=== PATIENT | male | born 1970 | race Caucasian/White ===

== ENCOUNTER 2016-08-31 13:48 | Emergency (ER) | payer BC, OTHER ==
[~2016-08-31] VITALS: Ht 171.5 cm; Wt 99.3 kg
[~2016-08-31 13:48] MED LIST: ASPCH81; LPT/40 PO; OMEG10007 PO; SULF800T23 PO; [UNRECOGNIZED DRUG - REMARK]; [UNRECOGNIZED DRUG - REMARK]
[2016-08-31 13:53] VITALS: TEMP 37; Ht 171.5 cm; Wt 99.3 kg
[2016-08-31] MEDS ORDERED: ASPI81TA28 PO (15:30)
[2016-08-31] MEDS ORDERED: PRAV80TA2 PO (15:30)
[2016-08-31] MEDS ORDERED: NIAC500T11 PO (15:30)
--- NOTE | 2016-08-31 15:38 | EMERGENCY ROOM VISIT NOTE ---
History First contact with patient: 15:10 Chief Complaint: UNABLE TO VOID Stated Complaint: PAIN CANT URINATE Nursing Triage Summary: Patienet reports lower abd pain and right flank pain x one week. Also c/o intermittent nausea Denies any history of kidney stones History of Present Illness The patient is a 45 year old male who presents to the Emergency Room with complaints of right flank pain and abdominal pain for the past one week. The patient reports that he has had a dull pain in his abdomen and flank which occasionally becomes sharp. He also reports he has had hematuria, dysuria, urinary urgency and a feeling of incomplete emptying. He has had nausea, but no vomiting. The patient reports that his urine has been very dark in color. Prior to arrival, the patient had very severe pain, but he reports that on arrival the pain has significantly improved and he rates his current discomfort a 3/10. He states his bowel movements have been normal. He does not have any history of abdominal surgery, kidney stones or kidney infections. The patient denies any chest pain, shortness of breath, hematochezia, melena, fevers or chills. Review of Systems A complete 10-point Review of Systems was discussed with the patient, with pertinent positives and negatives listed in the History of Present Illness. All remaining Review of Systems questions can be considered negative unless otherwise specified. Social History Smoking Status: Current Every Day Smoker Alcohol Use: none Current/Historical Medications Scheduled Aspirin (Aspirin Ec), 81 MG PO QPM Fish Oil (Marianna-3), 2 CAP PO QPM Niacin (Niacin), 500 MG PO DAILY Ondasetron Odt (Zofran Odt), 4 MG SL Q6H Pravastatin Sodium (Pravastatin Sodium), 1 TAB PO QPM Tamsulosin Hcl (Flomax), 0.4 MG PO DAILY Scheduled PRN Oxycodone/Acetaminophen 5MG/325MG (Percocet 5MG/325MG), 1-2 TABS PO Q6H PRN for Pain Allergies Coded Allergies: No Known Allergies (Unverified Allergy, Mild, 04/22/08) Uncoded Allergies: NKD (Allergy, Unknown, 11/26/04) Physical Exam Vital Signs Date Time Temp Pulse Resp B/P Pulse Ox O2 Delivery O2 Flow Rate FiO2 08/31/16 17:00 72 14 138/80 98 08/31/16 16:13 69 18 126/83 98 Room Air 3/9/17 13:53 37.0 82 20 142/92 95 Room Air Physical Exam VITALS: Vitals are noted on the nurse's note and reviewed by myself. Vital signs stable. GENERAL: This is a 45-year-old male, in no acute distress, nondiaphoretic, well- developed well-nourished. SKIN: Capillary reflex less than 2 seconds. HEENT: Normocephalic. PERRLA. EOMI. Nares patent. Mucous membranes moist. Neck is supple without nuchal rigidity. HEART: Regular rate and rhythm without murmurs gallops or rubs. LUNGS: Clear to auscultation bilaterally without wheezes, rales or rhonchi. ABDOMEN: Positive bowel sounds x 4. Umbilical hernia noted. The abdomen is soft and nondistended. No significant tenderness to palpation. MUSCULOSKELETAL: No CP tenderness. NEURO: Patient was alert and oriented to person place and time. Medical Decision & Procedures ER Provider Diagnostic Interpretation: ABDOMEN AND PELVIS CT WITHOUT CONTRAST FINDINGS: Mild dependent basilar atelectasis. Liver spleen and pancreas appear unremarkable. No evidence for gastric or gallbladder distention. Left kidney is negative for calcification or hydronephrosis. Moderate right renal hydronephrosis and hydroureter. Mild ureteral distention to a 3 mm obstructing calculus distal right ureter. The several centimeters proximal to the right ureterovesical junction. Bowel pattern overall is nonobstructive. Several colonic diverticuli with no evidence for diverticulitis. Normal appendix. IMPRESSION: 1 obstructing distal right ureteral calculus measuring 3 mm. 2. Mild right hydroureteronephrosis. Laboratory Results 08/31/16 15:35 Red Blood Count 5.18, Mean Corpuscular Volume 86.5, Mean Corpuscular Hemoglobin 30.7, Mean Corpuscular Hemoglobin Concent 35.5, Mean Platelet Volume 10.8, Neutrophils (%) (Auto) 81.4, Lymphocytes (%) (Auto) 10.9, Monocytes (%) (Auto) 7.1, Eosinophils (%) (Auto) 0.2, Basophils (%) (Auto) 0.1, Neutrophils # (Auto) 11.98, Lymphocytes # (Auto) 1.61, Monocytes # (Auto) 1.05, Eosinophils # (Auto) 0.03, Basophils # (Auto) 0.02 08/31/16 15:35 Test 08/31/16 15:30 08/31/16 15:35 Urine Color ORANGE Urine Appearance TURBID (CLEAR) Urine pH 5.0 (4.5-7.5) Urine Specific [place] 1.016 (1.000-1.030) Urine Protein 2+ (NEG) Urine Glucose (UA) NEG (NEG) Urine Ketones NEG (NEG) Urine Occult Blood 3+ (NEG) Urine Nitrite NEG (NEG) Urine Bilirubin NEG (NEG) Urine Urobilinogen NEG (NEG) Urine Leukocyte Esterase SMALL (NEG) Urine WBC (Auto) 10-30 /hpf (0-5) Urine RBC (Auto) >30 /hpf (0-4) Urine Hyaline Casts (Auto) 5-10 /lpf (0-5) Urine Epithelial Cells (Auto) 20-30 /lpf (0-5) Urine Bacteria (Auto) NEG (NEG) White Blood Count 14.73 K/uL (4.8-10.8) Red Blood Count 5.18 M/uL (4.7-6.1) Hemoglobin 15.9 g/dL (14.0-18.0) Hematocrit 44.8 % (42-52) Mean Corpuscular Volume 86.5 fL (80-100) Mean Corpuscular Hemoglobin 30.7 pg (25-34) Mean Corpuscular Hemoglobin Concent 35.5 g/dl (32-36) Platelet Count 229 K/uL (130-400) Mean Platelet Volume 10.8 fL (7.4-10.4) Neutrophils (%) (Auto) 81.4 % Lymphocytes (%) (Auto) 10.9 % Monocytes (%) (Auto) 7.1 % Eosinophils (%) (Auto) 0.2 % Basophils (%) (Auto) 0.1 % Neutrophils # (Auto) 11.98 K/uL (1.4-6.5) Lymphocytes # (Auto) 1.61 K/uL (1.2-3.4) Monocytes # (Auto) 1.05 K/uL (0.11-0.59) Eosinophils # (Auto) 0.03 K/uL (0-0.5) Basophils # (Auto) 0.02 K/uL (0-0.2) RDW Standard Deviation 43.1 fL (36.4-46.3) RDW Coefficient of Variation 13.4 % (11.5-14.5) Immature Granulocyte % (Auto) 0.3 % Immature Granulocyte # (Auto) 0.04 K/uL (0.00-0.02) Anion Gap 6.0 mmol/L (3-11) Est Creatinine Clear Calc Drug Dose 103.5 ml/min Estimated GFR () 103.4 Estimated GFR (Non- 89.2 BUN/Creatinine Ratio 14.0 (10-20) Calcium Level 8.9 mg/dl (8.5-10.1) Total Bilirubin 0.5 mg/dl (0.2-1) Aspartate Amino Transf (AST/SGOT) 19 U/L (15-37) Alanine Aminotransferase (ALT/SGPT) 36 U/L (12-78) Alkaline Phosphatase 91 U/L (45-117) Total Protein 7.7 gm/dl (6.4-8.2) Albumin 4.0 gm/dl (3.4-5.0) Globulin 3.7 gm/dl (2.5-4.0) Albumin/Globulin Ratio 1.1 (0.9-2) Lipase 99 U/L (73-393) Medical Decision Differential diagnosis includes renal calculus, pyelonephritis, colitis, gastroenteritis, cholecystitis, pancreatitis, hepatitis, small bowel obstruction , malignancy, among others. The patient was evaluated as above. Labs were drawn and IV access was obtained. Imaging studies were performed and read by radiology as above. The patient's pain had subsided greatly at the time of evaluation and he declined analgesics. The patient was reassessed multiple times during their stay in the emergency department and remained in stable condition. The patient is a 45-year-old male who presents today complaining of right flank pain. Labs revealed leukocytosis consistent with stress. No concerning anemia or left leg abnormalities. Kidney and liver functions were within normal limits. Urinalysis was not suggestive of infection. Blood was present in the urine. CT scan of the abdomen and pelvis was performed and did show a 3 mm stone in the distal right ureter. All findings were discussed with the patient. He will be discharged home with pain medication, Zofran and Flomax. He was given information for urology follow-up. He was given a urine strainer. The patient was encouraged to return if he has worsening of his current condition or any new/concerning symptoms. Based on the patient's presentation, lab results, and imaging studies, I feel the patient is stable for outpatient treatment. Discharge instructions were reviewed with the patient. The patient verbalized understanding of my assessment and treatment plan and was discharged home in good condition. [place] Drug Monitoring Program Search Results: patient reviewed within database, no issues identified Impression Primary Impression: Calculus of distal left ureter Departure Information Dispostion Home / Self-Care Condition GOOD Prescriptions Ondasetron Odt (ZOFRAN ODT) 4 Mg Tab 4 MG SL Q6H for Nausea, #15 TAB Prov: Marli Hinojosa PA-C 08/31/16 Oxycodone/Acetaminophen 5MG/325MG (PERCOCET 5MG/325MG) Tab 1-2 TABS PO Q6H Y for Pain, #20 TAB For Initial Treatment Prov: Marli Hinojosa PA-C 08/31/16 Tamsulosin Hcl (FLOMAX) 0.4 Mg Cap 0.4 MG PO DAILY for 14 Days, #14 CAP Prov: Marli Hinojosa PA-C 08/31/16 Referrals Villa Gamez M.D. (PCP) Briseida Tidwell MD Patient Instructions My [facility] Additional Instructions You have been treated in the Emergency Department today for a Kidney Stone ( Nephrolithiasis). You have been prescribed Percocet to be used for pain control. This is a narcotic medication. You cannot drive or consume alcohol while on this medicine. This medicine should only be used for pain that cannot be controlled with [id number] pain medicines. You have been prescribed Zofran to be used for any nausea or vomiting. Take as prescribed. You have been prescribed Flomax 0.4 mg to be taken ONCE daily. This medicine has been prescribed as it can help relax the smooth muscles of the urinary tract increasing transit time of the kidney stone. For pain control, you can use the following [id number] medicines (if >12 yo): - Regular strength (325mg/tab) Tylenol (acetaminophen) 2 tabs every 4-6 hours as needed. Do not exceed 12 tablets in a 24 hour period. Avoid taking more than 4 grams (4000 mg) of Tylenol per day. This includes any other sources of acetaminophen you may take on a regular basis. - Regular strength (200 mg/tab) Advil (ibuprofen) 1-2 tabs every 4-6 hours as needed. Do not exceed a dose of 3200 mg per day. You have been provided a strainer and specimen collection cup. You should strain your urine to collect any passed stones. Your stones can be placed into the specimen cup and taken to your Urologist for further evaluation. You have been provided the contact information for the on-call Urologist. You should contact the Urologist's office tomorrow to establish a follow-up appointment from today's Emergency Department visit. Return to the Emergency Department if your symptoms persist despite the treatment plan outlined above or if you develop the following symptoms: intractable pain, fever, chills, or large amounts of blood in your urine.
[2016-08-31 15:46] LABS: BASO % 0.1 %; BASO ABS # 0.02 K/uL (0-0.2); COMPLETE YES; EOS % 0.2 %; HEMATOCRIT 44.8 % (42-52); IG% 0.3 %; LYMPH % 10.9 %; LYMPH ABS # 1.61 K/uL (1.2-3.4); MEAN CELL VOLUME 86.5 fL (80-100); MEAN CORPUSCULAR HEMOGLOBIN 30.7 pg (25-34); MEAN CORPUSCULAR HGB CONC 35.5 g/dl (32-36); MEAN PLATELET VOLUME 10.8 fL (7.4-10.4); MONO % 7.1 %; NEUT % 81.4 %; PLATELET COUNT 229 K/uL (130-400); RED BLOOD COUNT 5.18 M/uL (4.7-6.1); WHITE BLOOD COUNT 14.73 K/uL (4.8-10.8)
--- NOTE | 2016-08-31 15:57 | DIAGNOSTIC IMAGING REPORT ---
ABDOMEN AND PELVIS CT WITHOUT CONTRAST CT DOSE: 1822.61 mGy.cm HISTORY: Pain right flank pain, urinary sx TECHNIQUE: Multiaxial CT images of the abdomen and pelvis were performed without the use of intravenous and oral contrast according to the standard department stone protocol. COMPARISON STUDY: None. FINDINGS: Mild dependent basilar atelectasis. Liver spleen and pancreas appear unremarkable. No evidence for gastric or gallbladder distention. Left kidney is negative for calcification or hydronephrosis. Moderate right renal hydronephrosis and hydroureter. Mild ureteral distention to a 3 mm obstructing calculus distal right ureter. The several centimeters proximal to the right ureterovesical junction. Bowel pattern overall is nonobstructive. Several colonic diverticuli with no evidence for diverticulitis. Normal appendix. IMPRESSION: 1 obstructing distal right ureteral calculus measuring 3 mm. 2. Mild right hydroureteronephrosis. Electronically signed by: Villa Wen M.D. 08/31/2016 3:56 PM Dictated Date/Time: 08/31/2016 3:53 PM
[2016-08-31 16:00] LABS: URINE APPEARANCE TURBID (CLEAR); URINE COLOR ORANGE; URINE EPITHELIAL CELL AUTO 20-30 /lpf (0-5); URINE NITRITE NEG (NEG); URINE SPECIFIC GRAVITY 1.016 (1.000-1.030); UROBILINOGEN NEG (NEG); ZZUR CULT IF INDIC CLEAN CATCH YES
[2016-08-31 16:01] LABS: MANUAL MICROSCOPIC REQUIRED? NO; REVIEW REQ? NO
[2016-08-31 16:03] LABS: URINE BILIRUBIN NEG (NEG)
[2016-08-31 16:15] LABS: CALCIUM 8.9 mg/dl (8.5-10.1); POTASSIUM 3.8 mmol/L (3.5-5.1)
[2016-08-31 16:18] LABS: ALB/GLOB RATIO 1.1 (0.9-2)
[2016-08-31] MEDS ORDERED: ONDA4TAB10 SL ×2 (16:36→16:55)
[2016-08-31] MEDS ORDERED: TAMS0.4C38 PO ×2 (16:36→16:55)
[2016-08-31] MEDS ORDERED: OXYC-57 PO ×2 (16:36→16:55)
[2016-08-31 17:00] VITALS: BP 138/80; PULSE 72; O2SAT 98
== END 2016-08-31 17:03 | disposition home or self-care (01) ==
LOC: C.EDB 13:52 → C.EDC 17:03
DX: N20.1 Calculus of ureter (principal); N13.2 Hydronephrosis with renal and ureteral calculous obstruction; K57.30 Diverticulosis of large intestine without perforation or abscess without bleeding; F17.200 Nicotine dependence, unspecified, uncomplicated; Z79.82 Long term (current) use of aspirin; Z79.899 Other long term (current) drug therapy

== ENCOUNTER 2023-01-27 22:24 | Observation (INO) ==
[2023-01-27 22:56] LABS: Basophils # (auto) 0.06 K/uL (0-0.2); Basophils % (auto) 0.5 %; Eosinophils # (auto) 0.33 K/uL (0-0.50); Eosinophils % (auto) 2.9 %; Hematocrit (blood only) 47.9 % (42.0-52.0); Hemoglobin 16.2 g/dl (14.0-18.0); Immature Granulocytes # (auto) 0.03 K/uL (0.01-0.20); Immature Granulocytes % (auto) 0.3 %; Lymphocytes # (auto) 3.03 K/uL (1.2-3.4); Mean Corpuscular Hemoglobin 30.1 pg (25.0-34.0); Mean Corpuscular Hgb Conc 33.8 g/dL (32.0-36.0); Mean Platelet Volume 11.5 fL (9.4-12.4); Monocytes # (auto) 1.06 K/uL (0.11-0.59); Monocytes % (auto) 9.4 %; Neutrophils # (auto) 6.73 K/uL (1.40-6.50); Neutrophils % (auto) 59.9 %; Platelet Count 213 K/uL (130-400); RDW Coefficient of Variation 14.1 % (11.5-14.5); RDW Standard Deviation 45.8 fL (36.4-46.3); Red Blood Count 5.38 M/uL (4.70-6.10); White Blood Count 11.24 K/ul (4.8-10.8)
[2023-01-27 23:11] LABS: Albumin Globulin Ratio 1.5 (0.9-2); Albumin Level 4.4 gm/dl (3.4-5.0); BUN Creatinine Ratio 16.3 (10-20); Bilirubin,Total 0.3 mg/dl (0.2-1.0); Calcium 9.4 mg/dl (8.6-10.3); Creatinine Clr Calc Pharmacy 106.6 ml/min; Est GFR (African American) 100.9 ml/min; Est GFR (Non-African American) 87.1 ml/min; Potassium 3.6 mmol/L (3.5-5.1); Total Protein 7.4 gm/dl (6.0-8.3)
--- NOTE | 2023-01-27 23:12 | XRay Report ---
SINGLE VIEW CHEST CLINICAL HISTORY: Atypical chest pain FINDINGS: An AP, portable, upright chest radiograph is compared to chest x-ray and chest CT dated 06/29. The examination is degraded by portable technique and apical lordotic positioning. The heart i s enlarged. There is mild pulmonary vascular congestion. Atelectasis is seen at the lung bases. The l ungs and pleural spaces are otherwise clear. No pneumothorax is seen. The skeletal structures are ost eopenic. The bony thorax is grossly intact. IMPRESSION: Cardiomegaly with mild pulmonary vascular congestion. ACT 112: Negative or not required by law. Electronically signed by: Wenceslao Mahoney M.D. 01/27/2023 11:10 PM
[2023-01-27 23:17] LABS: Troponin I High Sensitivity 6.5 pg/ml (0-20)
[2023-01-27 23:34] LABS: INR 0.9 (0.9-1.1); Partial Thromboplastin Ratio 0.9; Partial Thromboplastin Time 26.1 Seconds (21.0-31.0); Prothrombin Time 9.8 Seconds (9.0-12.0)
--- NOTE | 2023-01-27 23:57 | Emergency Department Note ---
Impression & Plan Symptomatic bradycardia, Chest pain Admit to the [facility] ED Provider Note NAME: SLOANE FINNEGAN AGE: 52 SEX: M ARRIVES VIA: Walk-In INFORMANT: Patient and his ED PROVIDER(S): Shelli Parks DO CHIEF COMPLAINT: Squeezing chest pain and tiredness PLAN: Disposition: Admit to the [facility] Condition: Guarded MEDICAL DECISION MAKING: This is a 52-year-old male patient who presents emergency department with extreme fatigue and chest tightness. This was sudden in onset. Laboratory studies reveal stable H&H, mild hyperglycemia, no significant leukocytosis and a normal troponin. EKG was unremarkable. Chest x-ray shows cardiomegaly and some mild pulmonary vascular congestion. Of note, the patient's father at age 49 from a heart attack and his brother had a stroke at a young age. While the patient was in the emergency department on the heart monitor, he had heart rates in the 30s. This was sinus bradycardia. Patient takes no medications as a cause for this. I discussed the case with the [facility] Hospitalist and they will evaluate for further management. Triage Nursing notes reviewed and agree with them. Additional history obtained from his is at the bedside Vital Signs: reviewed and remarkable for bradycardia Differential diagnosis: Cardiac dysrhythmia; electrolyte abnormality; cardiac ischemia Diagnostics independently interpreted by me: ECG: Normal sinus rhythm at a rate of [address] segment elevation or signs of ischemia. There is no ectopy. QTc is 419 ms. Cardiac Monitoring: Normal sinus rhythm at a rate of 72. Patient did have episodes of bradycardia as low as as sinus bradycardia at a rate of 30 Laboratory studies: See below Imaging studies: As per my independent interpretation Portable chest x-ray: Cardiomegaly with pulmonary vascular congestion HPI: 52/M arrives for evaluation of extreme tiredness and chest tightness. Patient states that he was sitting on his porch this evening when he developed extreme tiredness and dizziness. He felt real hot and then developed a squeezing sensation around his chest approximately 9 PM this evening. PAST MEDICAL HISTORY:Prostate enlargement; hypercholesterolemia PAST SURGICAL HISTORY:See Below FAMILY HISTORY: Patient's father at age 49 from a heart attack; his brother had a stroke at young age SOCIAL HISTORY:Patient lives with his family; he smokes; he works third shift HOME MEDICATIONS:See list ALLERGIES:None VITALS:See Below PHYSICAL EXAMINATION: HEENT: Head - normocephalic and atraumatic. Pupils are equal, round, and reactive to light. Extraocular eye muscles are intact, and sclera are anicteric. Nose - moist nasal mucosa without discharge. Mouth - moist buccal mucosa. Oropharynx is nonerythematous and there is no tonsillar exudate or edema noted. Neck: Supple; no JVD, nuchal rigidity, cervical lymphadenopathy, or auscultated bruits. Heart: Regular rate and rhythm. There is a normal S1 and S2 with no murmurs, clicks, or gallops appreciated. Lungs: Clear to auscultation bilaterally with no wheezes, rales, or rhonchi. Abdomen: Soft, protuberant with good bowel sounds. There are no palpable pulsatile masses or hepatosplenomegaly. There is no guarding, rigidity, or rebound noted. Extremities: No evidence of cyanosis, clubbing, or edema. There are easily palpable peripheral pulses. Skin: warm and dry with good turgor and no rashes. ED COURSE: Times/Reassessments: 2335: Patient was evaluated in room C9. A complete history and physical was performed. An order was placed for continuous cardiac monitoring. The patient was in normal sinus rhythm at a rate of 72 Patient had a twelve-lead EKG as described above. A portable chest x-ray was performed. Patient did have episodes of bradycardia while here in the emergency department. I reviewed the results of laboratory studies and x-ray with the patient and his . I discussed the case with the [facility] Hospitalist. Shelli Parks DO Past Med/Surg History Social History Smoking Status: Current every day smoker Tobacco Type: Cigarettes Cigarettes Per Day: 45; Second Hand Exposure: No; Do You Dip or Chew Tobacco: No; Tobacco Cessation Education Requested by Patient: No Hx Alcohol Use: No Hx Substance Use: Yes Last Used Substance: Hours (ago) Last Used Substance Other:: accidentally ate edible, normally doesnt use Substance Use Type Other:: THC Preferred Language: Barbadian Communication Ability: Effective Economics Teacher Required: No Beliefs That Will Affect Care: None Current Living Situation: Spouse Current Living Situation Comment: with Other Information That Helps Us Care for You: No Feels Safe at Home: Yes Safety Concerns: Feels Safe At This Time Assistive Devices: None Allergies Allergies Allergy/AdvReac Type Severity Reaction Status Date / Time No Known Allergies Allergy Mild Unverified 01/27/23 22:34 Home Meds Home Medications Medication Instructions Recorded Confirmed aspirin 81 mg tablet,delayed 81 mg PO QPM 01/27/23 01/27/23 release atorvastatin 40 mg tablet 40 mg PO QPM 01/27/23 01/27/23 omega 4-cbp-des-fish oil 1,000 mg 1 cap PO QPM 01/27/23 01/27/23 (120 mg-180 mg) capsule (Fish Oil) Results & Data (ED) Vital Signs Vital Signs - 24 hr 01/27/23 22:26 01/27/23 23:00 Temperature 36.4 C L Temperature Source Temporal Artery Scan Pulse Rate 83 74 Respiratory Rate 17 16 Respiratory Effort / Characteristics Non-Labored Spontaneous Respiratory Depth Normal Respiratory Pattern Regular Blood Pressure 184/99 H Blood Pressure Mean 127 Blood Pressure Position Sitting Pulse Oximetry 95 93 Oxygen Delivery Method Room Air Sepsis Recent Fever Within 48 Hours No Sepsis New/Unexplained Change in Mental Status No Sepsis Action Taken by Nursing No Action Required Laboratory Data 01/27/23 22:39 01/27/23 22:39 Lab Results 01/27/23 01/27/23 01/27/23 Range/Units 22:39 22:39 22:39 WBC 11.24 H (4.8-10.8) K/ul RBC 5.38 (4.70-6.10) M/uL Hgb 16.2 (14.0-18.0) g/dl Hct 47.9 (42.0-52.0) % MCV 89.0 (80.0-100.0) fL MCH 30.1 (25.0-34.0) pg MCHC 33.8 (32.0-36.0) g/dL RDW Std Deviation 45.8 (36.4-46.3) fL RDW Coeff of Victoriano 14.1 (11.5-14.5) % Plt Count 213 (130-400) K/uL MPV 11.5 (9.4-12.4) fL Immature Gran % (Auto) 0.3 % Neut % (Auto) 59.9 % Lymph % (Auto) 27.0 % [place] % (Auto) 9.4 % Eos % (Auto) 2.9 % Baso % (Auto) 0.5 % Neut # (Auto) 6.73 H (1.40-6.50) K/uL Lymph # (Auto) 3.03 (1.2-3.4) K/uL [place] # (Auto) 1.06 H (0.11-0.59) K/uL Eos # (Auto) 0.33 (0-0.50) K/uL Baso # (Auto) 0.06 (0-0.2) K/uL Immature Gran # (Auto) 0.03 (0.01-0.20) K/uL PT 9.8 (9.0-12.0) Seconds INR 0.9 (0.9-1.1) APTT 26.1 (21.0-31.0) Seconds PTT Ratio 0.9 Sodium 140 (136-145) mmol/L Potassium 3.6 (3.5-5.1) mmol/L Chloride 105 (98-107) mmol/L Carbon Dioxide 31 (21-32) mmol/L Anion Gap 4 (3-11) BUN 16 (6-23) mg/dl Creatinine 0.98 (0.6-1.4) mg/dl Est Cr Clr Drug Dosing 106.6 ml/min Est GFR ( Amer) 100.9 ml/min Est GFR (Non-Af Amer) 87.1 ml/min BUN/Creatinine Ratio 16.3 (10-20) Glucose 145 H (70-99(Fasting)) mg/dl Calcium 9.4 (8.6-10.3) mg/dl Phosphorus 3.1 (2.5-4.9) mg/dl Magnesium 2.2 (1.7-2.4) mg/dl Total Bilirubin 0.3 (0.2-1.0) mg/dl AST 18 (13-39) U/L ALT 29 (7-52) U/L Alkaline Phosphatase 115 H (34-104) U/L Troponin I High Sens 6.5 (0-20) pg/ml Total Protein 7.4 (6.0-8.3) gm/dl Albumin 4.4 (3.4-5.0) gm/dl Globulin 3.0 (2.5-4.0) gm/dl Albumin/Globulin Ratio 1.5 (0.9-2) Administered Medications Discontinued Medications Acetaminophen (Acetaminophen 500 Mg Tab) 1,000 mg PO NOW STA Stop: 01/28/23 00:32 Last Admin: 01/28/23 00:40 Dose: 1,000 mg Documented By: ISAC Enalaprilat 1.25 mg/ Dextrose 26 mls @ 100 mls/hr IV NOW STA Stop: 01/28/23 02:27 Last Admin: 01/28/23 02:58 Dose: Not Given Documented By: ISAC Lorazepam (Lorazepam 0.5 Mg Tab) 0.25 mg PO NOW STA Stop: 01/28/23 02:14 Last Admin: 01/28/23 02:36 Dose: 0.25 mg Documented By: ISAC Nitroglycerin (Nitroglycerin 2% Ointment 30gm Tube) 0.5 inch EXT Q6H ADEOLA Stop: 02/27/23 02:29 Last Admin: 01/28/23 08:29 Dose: 0.5 inch Documented By: Admin: 01/28/23 02:37 Dose: 0.5 inch Documented By: ISAC Imaging Data Radiologist's Impression: Chest X-Ray 01/27/23 22:30 SINGLE VIEW CHEST CLINICAL HISTORY: Atypical chest pain FINDINGS: An AP, portable, upright chest radiograph is compared to chest x-ray and chest CT dated 06/29/2008. The examination is degraded by portable technique and apical lordotic positioning. The heart is enlarged. There is mild pulmonary vascular congestion. Atelectasis is seen at the lung bases. The lungs and pleural spaces are otherwise clear. No pneumothorax is seen. The skeletal stru ctures are osteopenic. The bony thorax is grossly intact. IMPRESSION: Cardiomegaly with mild pulmonary vascular congestion. ACT 112: Negative or not required by law. Electronically signed by: Wenceslao Mahoney M.D. 01/27/2023 11:10 PM Discharge Plan Visit Data Chief Complaint: Chest Pain Stated Complaint: FEELING TIRED,CHEST TIGHTNESS ED Provider: Shelli Parks Discharge Problem: Symptomatic bradycardia, Chest pain Patient Disposition: Admitted As Inpatient Condition: Good Discharge Instructions Interventions: ED Discharge Assessment Last Done: 01/28/23 11:00
[2023-01-28] MEDS ORDERED: ACETAMINOPHEN 500 MG TAB PO STA (00:31)
[2023-01-28 00:39] LABS: Magnesium 2.2 mg/dl (1.7-2.4)
[2023-01-28 00:44] LABS: Phosphorus 3.1 mg/dl (2.5-4.9)
--- NOTE | 2023-01-28 00:55 | History & Physical Report ---
Date of Service January 28, 2023 Assessment & Plan (1) Chest pain: Plan: 52-year-old male present with chest pain and weakness and an episode of bradycardia. Chest pain Initial work-up unremarkable We will observe her in telemetry floor Serial cardiac enzymes and echo N.p.o. for now Consult cardiology in a.m. Symptomatic bradycardia Patient felt episode of weakness at home Patient had an episode of bradycardia in the ER when he felt similarly weak We will monitor in telemetry We will get a Lyme screen Cardiac consult Tobacco abuse Needs counseling Needs PFTs as outpatient Morbid obesity Needs counseling Sleep study as outpatient Hyperlipidemia On statin DVT prophylaxis SCDs Disposition observe on telemetry Full code History of Present Illness Chief Complaint: Chest pain Primary Care Provider: Villa Gamez MD 52-year-old male with past med significant for hyperlipidemia, hypertension floresita oing tobacco abuse, morbid obesity comes with chest pain. Today around 9 -9:30 PM was sitting in the chair when he noticed chest pain all over the chest about 8 / 10 in severity. Pressure-like feeling. This is associated with some dizziness. No radiation. It lasted for 5 minutes. He also felt very weak. It happened 1 more time after that. Patient states most of the time he is short of breath. Says most of the time he sweats. Currently has headache. No blurred visions. No earache or runny nose or sore throat. Appetite is okay. No dysphagia. No nausea. No abdominal pain. Normal bowel and bladder movements. In the ER had an episode of bradycardia when he had a similar feeling of weakness. Currently resting comfortably and hemodynamically stable. Feeling sleepy. Past medical history as mentioned above Past surgical history none on file Social history . Currently smoking 1-1 and half pack a day. Alcohol occasional Family history no family history on file Allergies Allergy/AdvReac Type Severity Reaction Status Date / Time No Known Allergies Allergy Mild Unverified 01/27/23 22:34 Home Medications Medication Instructions Recorded Confirmed Type aspirin 81 mg tablet,delayed 81 mg PO QPM 01/27/23 01/27/23 History release atorvastatin 40 mg tablet 40 mg PO QPM 01/27/23 01/27/23 History omega 7-xbk-lfh-fish oil 1,000 mg 1 cap PO QPM 01/27/23 01/27/23 History (120 mg-180 mg) capsule (Fish Oil) Past Med/Surg History Social History Smoking Status: Current every day smoker Tobacco Type: Cigarettes Preferred Language: Taiwanese Feels Safe at Home: Yes Review of Systems Review of Systems: All systems reviewed & are unremarkable except as noted in Subjective Physical Exam Physical Exam: General- Not in distress Head- atraumatic Eyes- PERRL. ENT- oropharynx clear Neck- supple, no JVD. Lungs- clear to auscultation and percussion, no added sounds Heart- regular rate and rhythm; no murmur, no gallop. Abdomen- normal bowel sounds, soft, nontender, no distension. Extremities- no pretibial edema, no erythema seen. Neuro- alert, oriented x 3; PERRL no facial palsy; no dysarthria; moves extremities. Skin- warm & dry Results & Data Results & Data Vital Signs (Past 12 Hours) Vital Signs Temp Pulse Pulse Resp BP Pulse Ox O2 Del Method 01/27/23 22:47 81 01/27/23 23:56 54 L 94 Room Air 01/27/23 23:56 94 Room Air 01/27/23 23:27 72 18 167/107 H 94 01/27/23 23:20 38 L 01/27/23 23:00 74 16 93 01/27/23 22:26 36.4 C L 83 17 184/99 H 95 Room Air Diagnostic Findings Laboratory Results WBC 11.24 K/ul (4.8-10.8) H 01/27/23 22:39 RBC 5.38 M/uL (4.70-6.10) 01/27/23 22:39 Hgb 16.2 g/dl (14.0-18.0) 01/27/23 22:39 Hct 47.9 % (42.0-52.0) 01/27/23 22:39 MCV 89.0 fL (80.0-100.0) 01/27/23 22:39 MCH 30.1 pg (25.0-34.0) 01/27/23 22:39 MCHC 33.8 g/dL (32.0-36.0) 01/27/23 22:39 RDW Std Deviation 45.8 fL (36.4-46.3) 01/27/23 22:39 RDW Coeff of Victoriano 14.1 % (11.5-14.5) 01/27/23 22:39 Plt Count 213 K/uL (130-400) 01/27/23 22:39 MPV 11.5 fL (9.4-12.4) 01/27/23 22:39 Immature Gran % (Auto) 0.3 % 01/27/23 22:39 Neut % (Auto) 59.9 % 01/27/23 22:39 Lymph % (Auto) 27.0 % 01/27/23 22:39 [place] % (Auto) 9.4 % 01/27/23 22:39 Eos % (Auto) 2.9 % 01/27/23 22:39 Baso % (Auto) 0.5 % 01/27/23 22:39 Neut # (Auto) 6.73 K/uL (1.40-6.50) H 01/27/23 22:39 Lymph # (Auto) 3.03 K/uL (1.2-3.4) 01/27/23 22:39 [place] # (Auto) 1.06 K/uL (0.11-0.59) H 01/27/23 22:39 Eos # (Auto) 0.33 K/uL (0-0.50) 01/27/23 22:39 Baso # (Auto) 0.06 K/uL (0-0.2) 01/27/23 22:39 Immature Gran # (Auto) 0.03 K/uL (0.01-0.20) 01/27/23 22:39 PT 9.8 Seconds (9.0-12.0) 01/27/23 22:39 INR 0.9 (0.9-1.1) 01/27/23 22:39 APTT 26.1 Seconds (21.0-31.0) 01/27/23 22:39 PTT Ratio 0.9 01/27/23 22:39 Sodium 140 mmol/L (136-145) 01/27/23 22:39 Potassium 3.6 mmol/L (3.5-5.1) 01/27/23 22:39 Chloride 105 mmol/L (98-107) 01/27/23 22:39 Carbon Dioxide 31 mmol/L (21-32) 01/27/23 22:39 Anion Gap 4 (3-11) 01/27/23 22:39 BUN 16 mg/dl (6-23) 01/27/23 22:39 Creatinine 0.98 mg/dl (0.6-1.4) 01/27/23 22:39 Est Cr Clr Drug Dosing 106.6 ml/min 01/27/23 22:39 Est GFR ( Amer) 100.9 ml/min 01/27/23 22:39 Est GFR (Non-Af Amer) 87.1 ml/min 01/27/23 22:39 BUN/Creatinine Ratio 16.3 (10-20) 01/27/23 22:39 Glucose 145 mg/dl (70-99(Fasting)) H 01/27/23 22:39 Calcium 9.4 mg/dl (8.6-10.3) 01/27/23 22:39 Phosphorus 3.1 mg/dl (2.5-4.9) 01/27/23 22:39 Magnesium 2.2 mg/dl (1.7-2.4) 01/27/23 22:39 Total Bilirubin 0.3 mg/dl (0.2-1.0) 01/27/23 22:39 AST 18 U/L (13-39) 01/27/23 22:39 ALT 29 U/L (7-52) 01/27/23 22:39 Alkaline Phosphatase 115 U/L (34-104) H 01/27/23 22:39 Troponin I High Sens 6.5 pg/ml (0-20) 01/27/23 22:39 Total Protein 7.4 gm/dl (6.0-8.3) 01/27/23 22:39 Albumin 4.4 gm/dl (3.4-5.0) 01/27/23 22:39 Globulin 3.0 gm/dl (2.5-4.0) 01/27/23 22:39 Albumin/Globulin Ratio 1.5 (0.9-2) 01/27/23 22:39 Impressions Chest X-Ray 01/27/23 22:30 SINGLE VIEW CHEST CLINICAL HISTORY: Atypical chest pain FINDINGS: An AP, portable, upright chest radiograph is compared to chest x-ray and chest CT dated 06/29/2008. The examination is degraded by portable technique and apical lordotic positioning. The heart is enlarged. There is mild pulmonary vascular congestion. Atelectasis is seen at the lung bases. The lungs and pleural spaces are otherwise clear. No pneumothorax is seen. The skeletal structures are osteopenic. The bony thorax is grossly intact. IMPRESSION: Cardiomegaly with mild pulmonary vascular congestion. ACT 112: Negative or not required by law. Electronically signed by: Wenceslao Mahoney M.D. 01/27/2023 11:10 PM ECG Additional Comments: ECG normal sinus rhythm at a rate of 74. No acute ST changes seen Code Status & VTE Plan VTE Prophylaxis Plan VTE Prophylaxis will be ordered: Yes
[2023-01-28] MEDS ORDERED: POLYETHYLENE (MIRALAX) 17 GM PACK PO PRN (02:05)
[2023-01-28] MEDS ORDERED: ACETAMINOPHEN 325 MG TAB PO PRN (02:05)
[2023-01-28] MEDS ORDERED: NITROGLYCERIN SL 0.4 MG/TAB TAB SL PRN (02:05)
[2023-01-28] MEDS ORDERED: ENALAPRILAT 1.25 MG in DEXTROSE 5% 25 ML IV STA (02:12)
[2023-01-28] MEDS ORDERED: LORazepam 0.5 MG TAB PO STA (02:13)
[2023-01-28] MEDS ORDERED: NITROGLYCERIN 2% OINTMENT 30GM TUBE EXT SCH (02:15)
[2023-01-28] MEDS: NITROGLYCERIN 2% OINTMENT 30GM TUBE EXT SCH ×2 (02:37→08:29)
[2023-01-28 05:02] LABS: Basophils # (auto) 0.04 K/uL (0-0.2); Basophils % (auto) 0.4 %; Eosinophils # (auto) 0.07 K/uL (0-0.50); Eosinophils % (auto) 0.7 %; Hematocrit (blood only) 46.9 % (42.0-52.0); Hemoglobin 15.6 g/dl (14.0-18.0); Immature Granulocytes # (auto) 0.06 K/uL (0.01-0.20); Immature Granulocytes % (auto) 0.6 %; Lymphocytes # (auto) 1.75 K/uL (1.2-3.4); Lymphocytes % (auto) 16.7 %; Mean Corpuscular Hemoglobin 29.7 pg (25.0-34.0); Mean Corpuscular Hgb Conc 33.3 g/dL (32.0-36.0); Mean Corpuscular Volume 89.3 fL (80.0-100.0); Mean Platelet Volume 11.6 fL (9.4-12.4); Monocytes # (auto) 0.79 K/uL (0.11-0.59); Monocytes % (auto) 7.5 %; Neutrophils # (auto) 7.78 K/uL (1.40-6.50); Neutrophils % (auto) 74.1 %; Platelet Count 201 K/uL (130-400); RDW Coefficient of Variation 14.1 % (11.5-14.5); Red Blood Count 5.25 M/uL (4.70-6.10); White Blood Count 10.49 K/ul (4.8-10.8)
[2023-01-28 05:20] LABS: BUN Creatinine Ratio 18.5 (10-20); Calcium 9.2 mg/dl (8.6-10.3); Creatinine Clr Calc Pharmacy 113.6 ml/min; Est GFR (African American) 108.9 ml/min; Magnesium 2.2 mg/dl (1.7-2.4); Potassium 4.1 mmol/L (3.5-5.1)
[2023-01-28 05:27] LABS: Troponin I High Sensitivity 5.8 pg/ml (0-20)
[2023-01-28 05:46] LABS: Lyme Ab IgG w/WB Rflx Negative (Negative); Lyme Ab IgM w/WB Rflx Negative (Negative)
--- NOTE | 2023-01-28 07:18 | Electrocardiogram Report ---
Test Reason : Blood Pressure : / mmHG Vent. Rate : 074 BPM Atrial Rate : 074 BPM P-R Int : 160 ms QRS Dur : 096 ms QT Int : 378 ms P-R-T Axes : 013 003 025 degrees QTc Int : 419 ms Normal sinus rhythm Normal ECG When compared with ECG of 29-JUN-2008 12:15, No significant change was found Confirmed by Noé Grady ([id number]) on 01/28/2023 7:17:40 AM Referred By: REFERRED SELF Confirmed By:Feliberto Grady
--- NOTE | 2023-01-28 12:30 | Discharge Summary ---
Date of Service January 28, 2023 Admission HPI Per Admitting Provider 52-year-old male with past med significant for hyperlipidemia, hypertension ongoing tobacco abuse, morbid obesity comes with chest pain. Today around 9 - 9:30 PM was sitting in the chair when he noticed chest pain all over the chest about 8 / 10 in severity. Pressure-like feeling. This is associated with some dizziness. No radiation. It lasted for 5 minutes. He also felt very weak. It happened 1 more time after that. Patient states most of the time he is short of breath. Says most of the time he sweats. Currently has headache. No blurred visions. No earache or runny nose or sore throat. Appetite is okay. No dysphagia. No nausea. No abdominal pain. Normal bowel and bladder movements. In the ER had an episode of bradycardia when he had a similar feeling of weakness. Currently resting comfortably and hemodynamically stable. Feeling sleepy. Past medical history as mentioned above Past surgical history none on file Social history . Currently smoking 1-1 and half pack a day. Alcohol occasional Family history no family history on file Admission Exam Per Admitting Provider General- Not in distress Head- atraumatic Eyes- PERRL. ENT- oropharynx clear Neck- supple, no JVD. Lungs- clear to auscultation and percussion, no added sounds Heart- regular rate and rhythm; no murmur, no gallop. Abdomen- normal bowel sounds, soft, nontender, no distension. Extremities- no pretibial edema, no erythema seen. Neuro- alert, oriented x 3; PERRL no facial palsy; no dysarthria; moves extremities. Skin- warm & dry Principal Diagnosis Chest pain Symptomatic bradycardia Discharge Data Allergies Allergy/AdvReac Type Severity Reaction Status Date / Time No Known Allergies Allergy Mild Unverified 01/27/23 22:34 Consultations 01/27/23 23:51 ED Decision to Admit Stat 01/28/23 08:00 Consult Cardiology Routine Procedures Performed Laboratory Results WBC 10.49 K/ul (4.8-10.8) 01/28/23 04:44 RBC 5.25 M/uL (4.70-6.10) 01/28/23 04:44 Hgb 15.6 g/dl (14.0-18.0) 01/28/23 04:44 Hct 46.9 % (42.0-52.0) 01/28/23 04:44 MCV 89.3 fL (80.0-100.0) 01/28/23 04:44 MCH 29.7 pg (25.0-34.0) 01/28/23 04:44 MCHC 33.3 g/dL (32.0-36.0) 01/28/23 04:44 RDW Std Deviation 46.0 fL (36.4-46.3) 01/28/23 04:44 RDW Coeff of Victoriano 14.1 % (11.5-14.5) 01/28/23 04:44 Plt Count 201 K/uL (130-400) 01/28/23 04:44 MPV 11.6 fL (9.4-12.4) 01/28/23 04:44 Immature Gran % (Auto) 0.6 % 01/28/23 04:44 Neut % (Auto) 74.1 % 01/28/23 04:44 Lymph % (Auto) 16.7 % 01/28/23 04:44 [place] % (Auto) 7.5 % 01/28/23 04:44 Eos % (Auto) 0.7 % 01/28/23 04:44 Baso % (Auto) 0.4 % 01/28/23 04:44 Neut # (Auto) 7.78 K/uL (1.40-6.50) H 01/28/23 04:44 Lymph # (Auto) 1.75 K/uL (1.2-3.4) 01/28/23 04:44 [place] # (Auto) 0.79 K/uL (0.11-0.59) H 01/28/23 04:44 Eos # (Auto) 0.07 K/uL (0-0.50) 01/28/23 04:44 Baso # (Auto) 0.04 K/uL (0-0.2) 01/28/23 04:44 Immature Gran # (Auto) 0.06 K/uL (0.01-0.20) 01/28/23 04:44 PT 9.8 Seconds (9.0-12.0) 01/27/23 22:39 INR 0.9 (0.9-1.1) 01/27/23 22:39 APTT 26.1 Seconds (21.0-31.0) 01/27/23 22:39 PTT Ratio 0.9 01/27/23 22:39 Sodium 140 mmol/L (136-145) 01/28/23 04:44 Potassium 4.1 mmol/L (3.5-5.1) 01/28/23 04:44 Chloride 107 mmol/L (98-107) 01/28/23 04:44 Carbon Dioxide 29 mmol/L (21-32) 01/28/23 04:44 Anion Gap 4 (3-11) 01/28/23 04:44 BUN 17 mg/dl (6-23) 01/28/23 04:44 Creatinine 0.92 mg/dl (0.6-1.4) 01/28/23 04:44 Est Cr Clr Drug Dosing 113.6 ml/min 01/28/23 04:44 Est GFR ( Amer) 108.9 ml/min 01/28/23 04:44 Est GFR (Non-Af Amer) 94.0 ml/min 01/28/23 04:44 BUN/Creatinine Ratio 18.5 (10-20) 01/28/23 04:44 Glucose 146 mg/dl (70-99(Fasting)) H 01/28/23 04:44 Calcium 9.2 mg/dl (8.6-10.3) 01/28/23 04:44 Phosphorus 3.1 mg/dl (2.5-4.9) 01/27/23 22:39 Magnesium 2.2 mg/dl (1.7-2.4) 01/28/23 04:44 Total Bilirubin 0.3 mg/dl (0.2-1.0) 01/27/23 22:39 AST 18 U/L (13-39) 01/27/23 22:39 ALT 29 U/L (7-52) 01/27/23 22:39 Alkaline Phosphatase 115 U/L (34-104) H 01/27/23 22:39 Troponin I High Sens 5.8 pg/ml (0-20) 01/28/23 04:44 Total Protein 7.4 gm/dl (6.0-8.3) 01/27/23 22:39 Albumin 4.4 gm/dl (3.4-5.0) 01/27/23 22:39 Globulin 3.0 gm/dl (2.5-4.0) 01/27/23 22:39 Albumin/Globulin Ratio 1.5 (0.9-2) 01/27/23 22:39 TSH 1.439 uIu/ml (0.300-4.500) 01/28/23 04:44 Lyme Disease IgG Ab Negative (Negative) 01/28/23 04:44 Lyme Disease IgM Ab Negative (Negative) 01/28/23 04:44 Impressions Chest X-Ray 01/27/23 22:30 SINGLE VIEW CHEST CLINICAL HISTORY: Atypical chest pain FINDINGS: An AP, portable, upright chest radiograph is compared to chest x-ray and chest CT dated 06/29/2008. The examination is degraded by portable technique and apical lordotic positioning. The heart is enlarged. There is mild pulmonary vascular congestion. Atelectasis is seen at the lung bases. The lungs and pleural spaces are otherwise clear. No pneumothorax is seen. The skeletal structures are osteopenic. The bony thorax is grossly intact. IMPRESSION: Cardiomegaly with mild pulmonary vascular congestion. ACT 112: Negative or not required by law. Electronically signed by: Wenceslao Mahoney M.D. 01/27/2023 11:10 PM Hospital Course (1) Chest pain: 52-year-old male present with chest pain and weakness and an episode of bradycardia. Chest pain Initial work-up unremarkable We will observe her in telemetry floor Serial cardiac enzymes and echo N.p.o. for now Consult cardiology in a.m. Symptomatic bradycardia Patient felt episode of weakness at home Patient had an episode of bradycardia in the ER when he felt similarly weak We will monitor in telemetry We will get a Lyme screen Cardiac consult Tobacco abuse Needs counseling Needs PFTs as outpatient Morbid obesity Needs counseling Sleep study as outpatient Hyperlipidemia On statin DVT prophylaxis SCDs Disposition observe on telemetry Full code Patient left AGAINST MEDICAL ADVICE despite explaining the risks and complications by RN. Patient did not get complete work-up for chest pain, bradycardia. Patient was not evaluated by me personally before he left AMA. Total Time Total Time Spent Total Time Spent (In Minutes): 25 minutes Discharge Plan Discharge Items Patient Disposition: Against Medical Advice Reason For Visit: CHEST PAIN, BRADYCARDIA Discharge Diagnosis: AMA Condition on Discharge: Good Goals: AMA Activity: Resume your previous activity Non-emergency contact: Primary Care Provider Call non-emergency contact if: your symptoms worsen Follow-up/Referrals: Villa Gamez MD [Primary Care Provider] - Diet: Regular Addtl Attending Provider Instructions: NA Pending Studies at Discharge: No (AMA) Stand-Alone Forms: My [facility] [employer], Smoking Cessation Medications and DC Order Prescriptions: Continued atorvastatin 40 mg tablet 40 mg PO QPM aspirin [Aspirin Low-Strength] 81 mg Tablet,Delayed Release (Dr/Ec) 81 mg PO QPM omega 0-rwn-iuh-fish oil [Fish Oil] 1,000 mg (120 mg-180 mg) Capsule 1 cap PO QPM Discharge Orders: Left Against Medical Advice (Routine); Ordered 01/28/23 Ordered By: Brian Ryder Admission Data Admit Date/Time: 01/28/23 00:31 Attending Provider: Brian Ryder Admit Provider: Cedric Traore Primary Care Provider: Villa Gamez Other Providers: Cedric Traore ; Latisha Sheehan ; Flako Palmer ; Ubaldo Burgos ; Cuco Olguin ; Good Payne ; Villa Cronin ; Tiffanie Haque ; Lynne Cazares ; Latisha Garcia ; Keith Andersen ; Gillian Holder ; Saud Charlton
[2023-01-28] MEDS ORDERED: ASPIRIN 81 MG ECTAB PO SCH (21:00)
[2023-01-28] MEDS ORDERED: ATORVASTATIN 40 MG TAB PO SCH (21:00)
== END 2023-01-28 13:17 | disposition left against medical advice (07) ==
LOC: EDINP 22:24 → ED 22:24 → SUATTDRO 01-28 00:31 → EDINP 01-28 11:00